=== PATIENT | female | born 1995 | race Caucasian/White ===

== ENCOUNTER 2017-10-24 15:33 | Emergency (ER) | payer BC ==
[2017-10-24] MEDS ORDERED: methylPREDNISolone Sodium Succinate 125 MG/2 ML SDV IVPUSH ONE (15:48)
[2017-10-24] MEDS ORDERED: diphenhydrAMINE 50 MG/ML SDV IVPUSH ONE (15:49)
--- NOTE | 2017-10-24 16:03 | EDM.PDOC ---
ED HPI GENERAL MEDICAL PROBLEM - General Chief Complaint: Allergic Reaction Stated Complaint: ALLERGIC REACTION,HIVES Time Seen by Provider: 10/24/17 15:45 Source of Information: Reports: Patient History Limitations: Reports: No Limitations - History of Present Illness INITIAL COMMENTS - FREE TEXT/NARRATIVE: HISTORY AND PHYSICAL: History of present illness: 22 year old female presents to the ER with a chief complaint an allergic reaction. She is unsure to what. She has not introduced any new medications, foods or anything else into her life. She noticed itching on the back of her neck that moved up to her face and caused her eyes to be puffy. She took a 25mg tab of benadryl at 3:15pm and noticed improvement in the rash. She initially had hives. She initially felt chest tightness but this has improved with her dose of benadryl. Prior allergic reaction in HS secondary to tomatoe sauce. patient has no known allergies. She denies any other concerns currently. Review of systems: As per history of present illness and below otherwise all systems reviewed and negative. Past medical history: As per history of present illness and as reviewed below otherwise noncontributory. Surgical history: As per history of present illness and as reviewed below otherwise noncontributory. Social history: No reported history of drug or alcohol abuse. Family history: As per history of present illness and as reviewed below otherwise noncontributory. Physical exam: HEENT: Atraumatic, normocephalic, pupils reactive, negative for conjunctival pallor or scleral icterus, mucous membranes moist, throat clear, neck supple, nontender, trachea midline. No oropharyngeal edema Lungs: Clear to auscultation, breath sounds equal bilaterally, chest nontender. No stridor appreciated. Heart: S1S2, regular, negative for clicks, rubs, or JVD. Integumentary: hives noted on the back of the neck and the face. areas of erythema noted on the neck and face. Diagnostics: [] Therapeutics: 125mg IV solumedrol, Benadryl 25mg IV Impression: Allergic reaction Plan: Patient reports feeling better after solumedrol and benadryl in the ER. Instructed to toake antihistamines should symptoms return. Will f/u with Dr. Tee in clinic. Definitive disposition and diagnosis as appropriate pending reevaluation and review of above. The following information is given to patients seen in the emergency department who are being discharged to home. This information is to outline your options for follow-up care. We provide all patients seen in our emergency department with a follow-up referral. The need for follow-up, as well as the timing and circumstances, are variable depending upon the specifics of your emergency department visit. If you don't have a primary care physician on staff, we will provide you with a referral. We always advise you to contact your personal physician following an emergency department visit to inform them of the circumstance of the visit and for follow-up with them and/or the need for any referrals to a consulting specialist. The emergency department will also refer you to a specialist when appropriate. This referral assures that you have the opportunity for follow-up care with a specialist. All of these measure are taken in an effort to provide you with optimal care, which includes your follow-up. Under all circumstances we always encourage you to contact your private physician who remains a resource for coordinating your care. When calling for follow-up care, please make the office aware that this follow-up is from your recent emergency room visit. If for any reason you are refused follow-up, please contact the [facility] Emergency Department at and asked to speak to the emergency department charge nurse. [facility] [address] [place] [id number] Contact above clinic to setup appointment. Chest Pain Score (Numeric/FACES): 7 - Related Data Allergies Allergy/AdvReac Type Severity Reaction Status Date / Time No Known Allergies Allergy Verified 10/24/17 15:38 Home Meds: Home Meds . [No Known Home Meds] 07/21/16 [History] Past Medical History - Infectious Disease History Infectious Disease History: Reports: Chicken Pox - Past Surgical History HEENT Surgical History: Reports: Adenoidectomy, Tonsillectomy Musculoskeletal Surgical History: Reports: Other (See Below) Other Musculoskeletal Surgeries/Procedures:: acl repair Social & Family History - Family History Family Medical History: Noncontributory - Tobacco Use Smoking Status *Q: Never Smoker Second Hand Smoke Exposure: No - Caffeine Use Caffeine Use: Reports: Coffee - Recreational Drug Use Recreational Drug Use: No ED ROS ALLERGIC REACTION - Review of Systems Review Of Systems: ROS reveals no pertinent complaints other than HPI. ED EXAM GENERAL NO PERIP PULSE - Physical Exam Exam: See Below Text/Narrative:: see dictation Course - Vital Signs Last Recorded V/S: Last Vital Signs Temp 99.0 F 10/24/17 15:35 Pulse 74 10/24/17 15:35 Resp 22 H 10/24/17 15:35 BP 132/79 10/24/17 15:35 Pulse Ox - Orders/Labs/Meds Meds: Medications Discontinued Medications Generic Name Dose Route Start Last Admin Trade Name Veronica PRN Reason Stop Dose Admin Diphenhydramine HCl 25 mg 10/24/17 15:49 10/24/17 15:58 Benadryl IVPUSH 10/24/17 15:50 25 mg ONETIME ONE Administration Methylprednisolone Sodium Succinate 125 mg 10/24/17 15:48 10/24/17 15:58 Solu-Medrol IVPUSH 10/24/17 15:49 125 mg ONETIME ONE Administration Departure - Departure Time of Disposition: 16:45 Disposition: Home, Self-Care 01 Clinical Impression: Allergic reaction Qualifiers: Encounter type: initial encounter Qualified Code(s): T78.40XA - Allergy, unspecified, initial encounter - Discharge Information Instructions: Anaphylactic Reaction, Adult Referrals: PCP,None [Primary Care Provider] - - Problem List & Annotations (1) Allergic reaction SNOMED Code(s): 405865806 Code(s): T78.40XA - ALLERGY, UNSPECIFIED, INITIAL ENCOUNTER Status: Acute Current Visit: Yes Qualifiers: Encounter type: initial encounter Qualified Code(s): T78.40XA - Allergy, unspecified, initial encounter - Problem List Review Problem List Initiated/Reviewed/Updated: Yes
[2017-10-24 17:00] VITALS: BP 118/75
== END 2017-10-24 17:01 | disposition home or self-care (01) ==
LOC: MW.ED 15:33
DX: T78.40XA Allergy, unspecified, initial encounter (principal)
CPT/HCPCS: 96374; 96375; 99283; J1200; J2930